=== PATIENT | male | born 1955 | race Caucasian/White ===

== ENCOUNTER 2017-04-10 15:16 | Inpatient (IN) | payer OTHER ==
[~2017-04-10] VITALS: Ht 175.3 cm; Wt 99.4 kg
[~2017-04-10 15:16] MED LIST: ASPI-630 PO; CLOP75TA PO; CYAN10005 PO; GABA-586 PO; ISOS60TA2 PO; LOSA50TA6 PO; METO-247 PO; MULT1TAB97 PO; OXYC-323 PO; PRAV20TA2 PO; SENN1TAB70 PO; ZINC30TA2 PO
[2017-04-10 16:29] LABS: BASO # 0.1 x10^3/uL (0.0-0.2); BASO % 1 % (0-3); EOS % 6 % (0-3); HEMATOCRIT 30.8 % (39.0-53.0); LYMPH # 1.3 x10^3/uL (1.0-4.8); LYMPH % 20 % (24-48); MEAN CORPUSCULAR HEMOGLOBIN 30 pg (25-35); MEAN CORPUSCULAR HGB CONC 33 g/dL (31-37); MEAN CORPUSCULAR VOLUME 92 fL (79-100); MONO % 11 % (0-9); NEUT % 62 % (31-73); PLATELET COUNT 187 x10^3/uL (140-400); RED BLOOD COUNT 3.35 x10^6/uL (4.30-5.70); RED CELL DISTRIBUTION WIDTH 14.1 % (11.5-14.5); WHITE BLOOD COUNT 6.6 x10^3/uL (4.0-11.0)
[2017-04-10 16:43] LABS: CALCIUM 8.9 mg/dL (8.5-10.1); CREATININE 8.5 mg/dL (0.7-1.3); GFR 6.4; POTASSIUM 5.1 mmol/L (3.5-5.1)
[2017-04-10] MEDS ORDERED: FUROSEMIDE 40 MG/4 ML VIAL. IVP ONE (16:45)
[2017-04-10 16:49] LABS: ALBUMIN 2.9 g/dL (3.4-5.0); ALBUMIN/GLOBULIN RATIO 0.8 (1.0-1.7); PHOSPHORUS 7.8 mg/dL (2.6-4.7); TOTAL BILIRUBIN 0.2 mg/dL (0.2-1.0); TOTAL PROTEIN 6.7 g/dL (6.4-8.2)
--- NOTE | 2017-04-10 16:49 | RAD ---
AP PORTABLE CHEST Clinical Indication: soa, dialysis pt. Comparison: None. Findings: Right IJ hemodialysis catheter, tip in distal SVC. Median sternotomy wires and changes of CABG. Cardiac size upper limits of normal. Lungs are clear. There is no pneumothorax. No pleural effusion is appreciated. There is no acute bone abnormality. IMPRESSION: No acute cardiopulmonary process.
--- NOTE | 2017-04-10 16:52 | RAD ---
ABDOMEN AP Clinical Indication: locate pd catheter Comparison: None. Findings: There is a left-sided catheter that courses into the pelvis. No dilated air-filled loops of bowel are seen. The bowel gas pattern is nonobstructive. No obvious organomegaly. There is no acute bony abnormality. IMPRESSION: 1. Left-sided catheter tip is located in the pelvis. 2. Nonobstructive bowel gas pattern.
--- NOTE | 2017-04-10 16:59 | PHYS DOC ---
Past Medical History Past Medical History: CAD, High Cholesterol, Hypertension, VA, Renal Failure Past Surgical History: Coronary Bypass Surgery, Tonsillectomy, Other Additional Past Surgical Histo: dialysis cath placement,right toe ampt, Additional Information: quit smoking 2004 Alcohol Use: None Drug Use: None Adult General Chief Complaint Chief Complaint: DIARRHEA HPI HPI Patient is a 62 year old male who presents ambulatory to the ED with the chief complaint of severe diarrhea. Patient recently started hemodialysis in about December. They have been using a hemodialysis catheter in his right chest wall. He dialyzes on Wednesday, , and Wednesday. On 03/22 he had a peritoneal dialysis catheter placed by Dr. Rooney.. Patient states the next day, 03/23, he went to dialysis and his chest catheter was not functioning so they began to use his PD catheter even though they were supposed to wait 2 weeks for it to "scar". He states they used it at least 2 or 3 times. He started having a lot of pain when they were using it. He also had drainage of clear liquid at the site where it enters his abdomen. He saw Dr. Rooney in the clinic and was instructed to stop using it until he was cleared to do so. At that point, they went back to using his chest wall catheter, they apparently unclotted it. Patient states they gave him 5 days of antibiotics starting when he started using his PD catheter, does not know what antibiotic it was. He did take those from approximately 03/23 through 03/27. Patient has never had diarrhea before like this. He estimates that he has had diarrhea 12-15 times each day since it started 5 days ago. He just had diarrhea for the eighth time today, when he arrived to his room in the ED. Patient also recently was restarted on furosemide. He has taken it in the past. PCP Dr. Mondragon [employer] Blind Worker was Dr. Stevens and now is Dr. Jackson Review of Systems Review of Systems Constitutional: Denies fever or chills [] HENT: Denies nasal congestion or sore throat [] Respiratory: He has had some shortness of air which she attributes to likely fluid overload Cardiovascular: Denies chest pain GI: As in history of present illness : He does make urine Musculoskeletal: Denies back pain or joint pain [] Integument: Denies rash or skin lesions [] Neurologic: Denies headache, focal weakness or sensory changes [] Endo: Patient states he is supposed to be taking insulin but has not taken it for a long time because he lost his meter All other systems were reviewed and found to be within normal limits, except as documented in this note. Current Medications Current Medications Current Medications Medications (Trade) Dose Ordered Sig/Isaiah Start Time Stop Time Status Last Admin Dose Admin Furosemide (Lasix) 40 mg 1X ONCE 04/10/17 16:45 04/10/17 16:46 DC 04/10/17 16:59 40 MG Allergies Allergies Allergies Coded Allergies Type Severity Reaction Last Updated Verified niacin Allergy Intermediate 03/22/17 Yes peas Allergy Intermediate 03/22/17 Yes soap Adverse Reaction Intermediate 03/22/17 Yes Physical Exam Physical Exam Constitutional: Well developed, well nourished, no acute distress, non-toxic appearance. Alert, warm and dry, mentating normally. HENT: Normocephalic, atraumatic, bilateral external ears normal, nose normal. [] Eyes: conjunctiva normal, no discharge. [] Neck: Normal range of motion, no stridor. [] Cardiovascular:Heart rate regular rhythm, no murmur [] Lungs & Thorax: Bilateral breath sounds clear to auscultation. there is a tunneled dialysis catheter present on the right upper chest wall that has a very small amount of erythema at the insertion site and a similar amount at the suture site that appears to be more reactive and does not appear to be cellulitis. Abdomen: Bowel sounds normal, soft, no tenderness, no masses, no pulsatile masses. A bandaged PD catheter is present in the left side of the abdomen, mildly tender at the site. Skin: Warm, dry, no erythema, no rash. [] Extremities: No tenderness, no cyanosis, no clubbing, ROM intact, no edema. [] Neurologic: Alert and oriented X 3, normal motor function, no focal deficits noted. [] Current Patient Data Vital Signs Vital Signs Date Time Temp Pulse Resp B/P (MAP) Pulse Ox O2 Delivery O2 Flow Rate FiO2 04/10/17 17:12 66 13 161/90 (113) 97 Room Air 04/10/17 16:06 97.9 97.9 Lab Values Laboratory Tests Test 04/10/17 16:03 White Blood Count 6.6 x10^3/uL (4.0-11.0) Red Blood Count 3.35 x10^6/uL (4.30-5.70) L Hemoglobin 10.0 g/dL (13.0-17.5) L Hematocrit 30.8 % (39.0-53.0) L Mean Corpuscular Volume 92 fL (79-100) Mean Corpuscular Hemoglobin 30 pg (25-35) Mean Corpuscular Hemoglobin Concent 33 g/dL (31-37) Red Cell Distribution Width 14.1 % (11.5-14.5) Platelet Count 187 x10^3/uL (140-400) Neutrophils (%) (Auto) 62 % (31-73) Lymphocytes (%) (Auto) 20 % (24-48) L Monocytes (%) (Auto) 11 % (0-9) H Eosinophils (%) (Auto) 6 % (0-3) H Basophils (%) (Auto) 1 % (0-3) Neutrophils # (Auto) 4.1 x10^3uL (1.8-7.7) Lymphocytes # (Auto) 1.3 x10^3/uL (1.0-4.8) Monocytes # (Auto) 0.7 x10^3/uL (0.0-1.1) Eosinophils # (Auto) 0.4 x10^3/uL (0.0-0.7) Basophils # (Auto) 0.1 x10^3/uL (0.0-0.2) Sodium Level 137 mmol/L (136-145) Potassium Level 5.1 mmol/L (3.5-5.1) Chloride Level 104 mmol/L (98-107) Carbon Dioxide Level 20 mmol/L (21-32) L Anion Gap 13 (6-14) Blood Urea Nitrogen 64 mg/dL (8-26) H Creatinine 8.5 mg/dL (0.7-1.3) H Estimated GFR (Cockcroft-Gault) 6.4 BUN/Creatinine Ratio 8 (6-20) Glucose Level 153 mg/dL (70-99) H Lactic Acid Level 0.9 mmol/L (0.4-2.0) Calcium Level 8.9 mg/dL (8.5-10.1) Phosphorus Level 7.8 mg/dL (2.6-4.7) H Total Bilirubin 0.2 mg/dL (0.2-1.0) Aspartate Amino Transferase (AST) 20 U/L (15-37) Alanine Aminotransferase (ALT) 25 U/L (16-63) Alkaline Phosphatase 84 U/L (46-116) Total Protein 6.7 g/dL (6.4-8.2) Albumin 2.9 g/dL (3.4-5.0) L Albumin/Globulin Ratio 0.8 (1.0-1.7) L Laboratory Tests 04/10/17 16:03 Laboratory Tests 04/10/17 16:03 EKG EKG 12-lead EKG read by me. Sinus rhythm. Heart rate 66. There are no acute ST or T wave changes indicative of ischemia or infarction. No STEMI. There are no T- wave abnormalities suggestive of hyperkalemia. No acute abnormalities. [id number][] Radiology/Procedures Radiology/Procedures One view portable chest x-ray and KUB read by the radiologist. No acute findings in the chest. Peritoneal dialysis catheter appears to be in the pelvis. [] Course & Med Decision Making Course & Med Decision Making Pertinent Labs and Imaging studies reviewed. (See chart for details) 62-year-old male dialysis patient presents to the ED with 5 days of large quantities of diarrhea. Also, he missed his dialysis the last 2 times because of this amount of diarrhea. He also had a concern about the placement of his PD catheter, see history of present illness for explanation. I believe the patient needs to be hospitalized for dialysis tomorrow. I am not seeing any indication for emergent dialysis tonight, but he definitely needs to have dialysis. I am also concerned about the possibility of C. difficile. The patient had antibiotics about 1 week before this diarrhea began. C. difficile testing was ordered. I discussed the patient with Dr. Jimenes. He will admit the patient. I wrote bridge orders. We agreed to start the patient on oral vancomycin. I also discussed the case with Dr. Childs, nephrology. I believe the patient should be dialyzed tomorrow but does not require urgent dialysis tonight. He will make arrangements for that. Patient is agreeable to the plan for admission as above. [] Dragon Disclaimer Dragon Disclaimer This electronic medical record was generated, in whole or in part, using a voice recognition dictation system. Departure Departure Impression: Primary Impression: Diarrhea Additional Impressions: Other disorders of phosphorus metabolism End-stage renal disease needing dialysis Disposition: 09 ADMITTED INPATIENT Admitting Physician: Funmilayo Jimenes Condition: STABLE Referrals: RANJIT MONDRAGON (PCP) Problem Qualifiers SANDY BOSWELL MD Apr 10, 2017 16:59
[2017-04-10] MEDS: VANCOMYCIN 125 MG/2.5 ML ORAL SOLUTION. PO SCH ×2 (18:13→22:30)
[2017-04-10 19:00] VITALS: BP 172/95
[2017-04-10] MEDS ORDERED: FURO-68 PO (20:03)
[2017-04-10] MEDS ORDERED: oxyCODONE/APAP 5/325 1 TAB TABLET PO PRN (21:45)
[2017-04-10] MEDS: FUROSEMIDE 40 MG TABLET. PO SCH (21:49)
[2017-04-10] MEDS ORDERED: METOPROLOL SUCC 24HR ER 100 MG TAB.ER.24H. PO SCH (22:00)
[2017-04-10] MEDS ORDERED: ATORVASTATIN CALCIUM 10 MG TABLET. PO SCH (22:00)
[2017-04-10] MEDS: GABAPENTIN 300 MG CAPSULE. PO SCH (22:30)
[2017-04-10] MEDS: ASPIRIN CHEWABLE 81 MG TABLET. PO SCH (22:30)
[2017-04-10 23:00] VITALS: BP 154/83
[2017-04-11 04:57] LABS: BASO # 0.1 x10^3/uL (0.0-0.2); BASO % 1 % (0-3); EOS % 7 % (0-3); HEMATOCRIT 29.6 % (39.0-53.0); HEMOGLOBIN 9.6 g/dL (13.0-17.5); LYMPH # 1.3 x10^3/uL (1.0-4.8); LYMPH % 20 % (24-48); MEAN CORPUSCULAR HEMOGLOBIN 30 pg (25-35); MEAN CORPUSCULAR HGB CONC 33 g/dL (31-37); MEAN CORPUSCULAR VOLUME 92 fL (79-100); MONO % 11 % (0-9); NEUT % 61 % (31-73); PLATELET COUNT 178 x10^3/uL (140-400); RED BLOOD COUNT 3.22 x10^6/uL (4.30-5.70); RED CELL DISTRIBUTION WIDTH 14.5 % (11.5-14.5); WHITE BLOOD COUNT 6.6 x10^3/uL (4.0-11.0)
[2017-04-11 05:26] LABS: CALCIUM 8.9 mg/dL (8.5-10.1); CREATININE 8.6 mg/dL (0.7-1.3); GFR 6.4; POTASSIUM 5.1 mmol/L (3.5-5.1)
[2017-04-11 07:00] VITALS: BP_SYST 101; BP_SYST 154; BP_DIAS 40; BP_DIAS 91
--- NOTE | 2017-04-11 08:51 | EKG ---
[facility] [address] [place] [address] Test Date: 2017-04-10 Test Time: 15:54:53 Pat Name: YOLANDE RASHID Department: Room: 586 1 Gender: M Bioinformatics Technician: : 1955 Requested By: SANDY BOSWELL Order Number: [id number] Reading MD: Miguel Lunsford MD Measurements Intervals [place] Rate: 66 P: -44 IA: 160 QRS: -3 QRSD: 110 T: 138 QT: 450 QTc: 474 Interpretive Statements SINUS RHYTHM NON-SPECIFIC ST/T CHANGES Electronically Signed On 04-13-2017 11:43:03 PHOTO MASK INSPECTOR by Miguel Lunsford MD
[2017-04-11] MEDS ORDERED: ZINC GLUCONATE 30 MG PO SCH (09:00)
[2017-04-11] MEDS: CYANOCOBALAMIN (VITAMIN B-12) 1,000 MCG TABLET. PO SCH (09:14)
[2017-04-11] MEDS: ATORVASTATIN CALCIUM 10 MG TABLET. PO SCH (09:14)
[2017-04-11] MEDS: ISOSORBIDE MONONITRATE ER 30 MG TAB.ER.24H PO SCH (09:16)
[2017-04-11] MEDS: FUROSEMIDE 40 MG TABLET. PO SCH ×2 (09:16→14:44)
[2017-04-11] MEDS: MULTIVITAMIN with MINERAL TABLET. PO SCH (09:16)
[2017-04-11] MEDS: CLOPIDOGREL BISULFATE 75 MG TABLET PO SCH (09:17)
[2017-04-11] MEDS: LOSARTAN POTASSIUM 50 MG TABLET. PO SCH (09:17)
[2017-04-11] MEDS: METOPROLOL SUCC 24HR ER 100 MG TAB.ER.24H. PO SCH (09:18)
[2017-04-11] MEDS: VANCOMYCIN 125 MG/2.5 ML ORAL SOLUTION. PO SCH ×4 (09:18→20:36)
[2017-04-11 10:46] VITALS: BP 148/89
[2017-04-11] MEDS ORDERED: MAGNESIUM SULFATE 2GM 50 ML IV PRN (14:30)
--- NOTE | 2017-04-11 14:34 | PDOC2 ---
CONSULT Date of Consult Date of Consult DATE: 04/11/17 TIME: 14:17 Reason for Consult Reason for Consult: ESRD and elyte ABN Referring Physician Referring Physician: FERNANDO and Dr Jimenes Identification/Chief Complaint Chief Complaint diarrhea, weakness Problems: Source Source: Chart review, Patient History of Present Illness Reason for Visit: as dictated Social History Lives: with Family Current Problem List Problem List Problems Medical Problems: (1) Diarrhea Status: Acute (2) End-stage renal disease needing dialysis Status: Acute (3) Other disorders of phosphorus metabolism Status: Acute Current Medications Current Medications Current Medications Furosemide (Lasix) 40 mg 1X ONCE IVP Last administered on 04/10/17 16:59; Start 04/10/17 at 16:45; Stop 04/10/17 at 16:46; Status DC Vancomycin HCl 125 mg [id number] PO Last administered on 04/11/17 09:18; Start 04/10/17 at 18:00 Aspirin (Children'S Aspirin) 81 mg HS PO Last administered on 04/10/17 22:30 ; Start 04/10/17 at 22:00 Clopidogrel Bisulfate (Plavix) 75 mg DAILY PO Last administered on 04/11/17 09:17; Start 04/11/17 at 09:00 Cyanocobalamin (Vitamin B-12) 1,000 mcg DAILY PO Last administered on 09:14; Start 04/11/17 at 09:00 Furosemide (Lasix) 40 mg [id number] PO Last administered on 04/11/17 09:16; Start 04/10/17 at 22:00 Losartan Potassium (Cozaar) 100 mg DAILY PO Last administered on 04/11/17 09: 17; Start 04/11/17 at 09:00 Metoprolol Succinate (Toprol Xl) 100 mg HS PO ; Start 04/10/17 at 22:00; Stop 04/10/17 at 23:03; Status DC Oxycodone/ Acetaminophen (Percocet 5/325) 1 tab PRN Q4HRS PRN PO PAIN; Start 04/10/17 at 21:45 Gabapentin (Neurontin) 300 mg HS PO Last administered on 04/10/17 22:30; Start 04/10/17 at 22:00 Isosorbide Mononitrate (Imdur) 120 mg DAILY PO Last administered on 04/11/17 09:16; Start 04/11/17 at 09:00 Multivitamins (Thera M Plus) 1 tab DAILY PO Last administered on 04/11/17 09: 16; Start 04/11/17 at 09:00 Atorvastatin Calcium (Lipitor) 5 mg HS PO ; Start 04/10/17 at 22:00; Stop at 23:04; Status DC Non-Formulary Medication 30 mg DAILY PO ; Start 04/11/17 at 09:00; Status UNV Metoprolol Succinate (Toprol Xl) 100 mg DAILY PO Last administered on 09:18; Start 04/11/17 at 09:00 Atorvastatin Calcium (Lipitor) 5 mg DAILY PO Last administered on 04/11/17 09 :14; Start 04/11/17 at 09:00 Active Scripts Active Reported Lasix (Furosemide) 40 Mg Tablet 40 Mg PO BID Percocet 5-325 Mg Tablet (Oxycodone/Acetaminophen) 1 Each Tablet 1 Tab PO Q4HRS PRN Zinc (Zinc Gluconate) 30 Mg Tablet 30 Mg PO DAILY Vitamin B-12 (Cyanocobalamin (Vitamin B-12)) 1,000 Mcg Tablet 1,000 Mcg PO DAILY Daily Multiple Vitamin (Multivitamin) 1 Each Tablet 1 Each PO DAILY Gabapentin 300 Mg Capsule 300 Mg PO HS Aspirin 81 Mg Tab.chew 81 Mg PO HS Pravastatin Sodium 20 Mg Tablet 20 Mg PO HS Clopidogrel (Clopidogrel Bisulfate) 75 Mg Tablet 75 Mg PO DAILY Isosorbide Mononitrate Er (Isosorbide Mononitrate) 60 Mg Tab.er.24h 120 Mg PO DAILY Losartan Potassium 50 Mg Tablet 100 Mg PO DAILY Metoprolol Succinate ( Xl ) (Metoprolol Succinate) 100 Mg Tab.er.24h 100 Mg PO HS Allergies Allergies: Coded Allergies: niacin (Verified Allergy, Intermediate, 03/22/17) peas (Verified Allergy, Intermediate, 03/22/17) soap (Verified Adverse Reaction, Intermediate, 03/22/17) ROS Review of System GEN: no Fevers no Chills EYES: no new Visual Complaints ENT: no EN Drainage no Hearing deficiets CVS: no Orthopnea no CP RESP: no SOB no SEPULVEDA GI: n Nausea no Vomiting + Diarrhea : no Dysuria no Urgency HEME: no easy bruising no Palp Ly Nodes NEURO no Focal Weakness no Sz PSYCH: no Suicidal Ideation no Depression SKIN: no Rashes ENDO: no Polyuria or Polydipsia no Hot/Cold Intolerance MU SK: no Arthraigia no Myalgia Physical Exam Physical Exam General Appearance: Awake Alert Oriented x 3 In no Distress Eyes: VIsion Unchanged Conjunctiva Normal EN: No EN Drainage Mucous Memb. moist Neck: no JVD no JVP Supple no Thyromegaly CVS: S1 S2 no Murmur No Gallop No Rub ++ Edema Resp: no Rales no Rhonchi no Acc. Muscle use GI: BAS +ve NO Bruit Non Tender Non Distended - obese : no CVA tenderness; no Suprapubic Tenderness SKIN: no Rashes Breast Exam deferred Mu.Sk: Adequate ROM no Muscle Atrophy - few missing toes Heme: Unable to palpate Obvious LAD no Splenomegaly NEURO: Good Strength and Tone Cranial Nerves II - XII grossly intact Psych: not Depressed no Active hallucination Vital Signs Vital Signs Date Time Temp Pulse Resp B/P (MAP) Pulse Ox O2 Delivery O2 Flow Rate FiO2 04/11/17 10:46 97.9 70 18 148/89 (108) 97 Room Air 97.9 Assessment & Plan ESRD: Current FLuid and E-lyte status does not necessitate emergent need for Dialysis. Will re-evaluate for Dialysis in am and continue on MWF schedule. Anemia: Epogen as ordered. Transfuse with next HD as needed. HTN: Current BP meds reviewed. See orders for changes. ^ed Phos - restart binders and watch trend ? Vol dpeltion - pt is asymptomatic and dose not want IVF Edema - chronic Diarrhea - W/up ongoing - check Mag and replace prn Met acidosis - presumably from Diarrhea - IVF with Bicarb if needed. anticipate correction with Hd bryce hypoAlbuminemia - ? still protineuric - claims he is eatin well Discussed Plan of Care and prognosis etc. at length with pt Labs Labs Laboratory Tests Test 04/10/17 16:03 04/11/17 04:30 White Blood Count 6.6 x10^3/uL (4.0-11.0) 6.6 x10^3/uL (4.0-11.0) Red Blood Count 3.35 x10^6/uL (4.30-5.70) 3.22 x10^6/uL (4.30-5.70) Hemoglobin 10.0 g/dL (13.0-17.5) 9.6 g/dL (13.0-17.5) Hematocrit 30.8 % (39.0-53.0) 29.6 % (39.0-53.0) Mean Corpuscular Volume 92 fL (79-100) 92 fL (79-100) Mean Corpuscular Hemoglobin 30 pg (25-35) 30 pg (25-35) Mean Corpuscular Hemoglobin Concent 33 g/dL (31-37) 33 g/dL (31-37) Red Cell Distribution Width 14.1 % (11.5-14.5) 14.5 % (11.5-14.5) Platelet Count 187 x10^3/uL (140-400) 178 x10^3/uL (140-400) Neutrophils (%) (Auto) 62 % (31-73) 61 % (31-73) Lymphocytes (%) (Auto) 20 % (24-48) 20 % (24-48) Monocytes (%) (Auto) 11 % (0-9) 11 % (0-9) Eosinophils (%) (Auto) 6 % (0-3) 7 % (0-3) Basophils (%) (Auto) 1 % (0-3) 1 % (0-3) Neutrophils # (Auto) 4.1 x10^3uL (1.8-7.7) 4.0 x10^3uL (1.8-7.7) Lymphocytes # (Auto) 1.3 x10^3/uL (1.0-4.8) 1.3 x10^3/uL (1.0-4.8) Monocytes # (Auto) 0.7 x10^3/uL (0.0-1.1) 0.7 x10^3/uL (0.0-1.1) Eosinophils # (Auto) 0.4 x10^3/uL (0.0-0.7) 0.4 x10^3/uL (0.0-0.7) Basophils # (Auto) 0.1 x10^3/uL (0.0-0.2) 0.1 x10^3/uL (0.0-0.2) Sodium Level 137 mmol/L (136-145) 136 mmol/L (136-145) Potassium Level 5.1 mmol/L (3.5-5.1) 5.1 mmol/L (3.5-5.1) Chloride Level 104 mmol/L (98-107) 107 mmol/L (98-107) Carbon Dioxide Level 20 mmol/L (21-32) 17 mmol/L (21-32) Anion Gap 13 (6-14) 12 (6-14) Blood Urea Nitrogen 64 mg/dL (8-26) 66 mg/dL (8-26) Creatinine 8.5 mg/dL (0.7-1.3) 8.6 mg/dL (0.7-1.3) Estimated GFR (Cockcroft-Gault) 6.4 6.4 BUN/Creatinine Ratio 8 (6-20) Glucose Level 153 mg/dL (70-99) 168 mg/dL (70-99) Lactic Acid Level 0.9 mmol/L (0.4-2.0) Calcium Level 8.9 mg/dL (8.5-10.1) 8.9 mg/dL (8.5-10.1) Phosphorus Level 7.8 mg/dL (2.6-4.7) Total Bilirubin 0.2 mg/dL (0.2-1.0) Aspartate Amino Transf (AST/SGOT) 20 U/L (15-37) Alanine Aminotransferase (ALT/SGPT) 25 U/L (16-63) Alkaline Phosphatase 84 U/L (46-116) Total Protein 6.7 g/dL (6.4-8.2) Albumin 2.9 g/dL (3.4-5.0) Albumin/Globulin Ratio 0.8 (1.0-1.7) Laboratory Tests Test 04/10/17 16:03 04/11/17 04:30 White Blood Count 6.6 x10^3/uL (4.0-11.0) 6.6 x10^3/uL (4.0-11.0) Red Blood Count 3.35 x10^6/uL (4.30-5.70) 3.22 x10^6/uL (4.30-5.70) Hemoglobin 10.0 g/dL (13.0-17.5) 9.6 g/dL (13.0-17.5) Hematocrit 30.8 % (39.0-53.0) 29.6 % (39.0-53.0) Mean Corpuscular Volume 92 fL (79-100) 92 fL (79-100) Mean Corpuscular Hemoglobin 30 pg (25-35) 30 pg (25-35) Mean Corpuscular Hemoglobin Concent 33 g/dL (31-37) 33 g/dL (31-37) Red Cell Distribution Width 14.1 % (11.5-14.5) 14.5 % (11.5-14.5) Platelet Count 187 x10^3/uL (140-400) 178 x10^3/uL (140-400) Neutrophils (%) (Auto) 62 % (31-73) 61 % (31-73) Lymphocytes (%) (Auto) 20 % (24-48) 20 % (24-48) Monocytes (%) (Auto) 11 % (0-9) 11 % (0-9) Eosinophils (%) (Auto) 6 % (0-3) 7 % (0-3) Basophils (%) (Auto) 1 % (0-3) 1 % (0-3) Neutrophils # (Auto) 4.1 x10^3uL (1.8-7.7) 4.0 x10^3uL (1.8-7.7) Lymphocytes # (Auto) 1.3 x10^3/uL (1.0-4.8) 1.3 x10^3/uL (1.0-4.8) Monocytes # (Auto) 0.7 x10^3/uL (0.0-1.1) 0.7 x10^3/uL (0.0-1.1) Eosinophils # (Auto) 0.4 x10^3/uL (0.0-0.7) 0.4 x10^3/uL (0.0-0.7) Basophils # (Auto) 0.1 x10^3/uL (0.0-0.2) 0.1 x10^3/uL (0.0-0.2) Sodium Level 137 mmol/L (136-145) 136 mmol/L (136-145) Potassium Level 5.1 mmol/L (3.5-5.1) 5.1 mmol/L (3.5-5.1) Chloride Level 104 mmol/L (98-107) 107 mmol/L (98-107) Carbon Dioxide Level 20 mmol/L (21-32) 17 mmol/L (21-32) Anion Gap 13 (6-14) 12 (6-14) Blood Urea Nitrogen 64 mg/dL (8-26) 66 mg/dL (8-26) Creatinine 8.5 mg/dL (0.7-1.3) 8.6 mg/dL (0.7-1.3) Estimated GFR (Cockcroft-Gault) 6.4 6.4 BUN/Creatinine Ratio 8 (6-20) Glucose Level 153 mg/dL (70-99) 168 mg/dL (70-99) Lactic Acid Level 0.9 mmol/L (0.4-2.0) Calcium Level 8.9 mg/dL (8.5-10.1) 8.9 mg/dL (8.5-10.1) Phosphorus Level 7.8 mg/dL (2.6-4.7) Total Bilirubin 0.2 mg/dL (0.2-1.0) Aspartate Amino Transf (AST/SGOT) 20 U/L (15-37) Alanine Aminotransferase (ALT/SGPT) 25 U/L (16-63) Alkaline Phosphatase 84 U/L (46-116) Total Protein 6.7 g/dL (6.4-8.2) Albumin 2.9 g/dL (3.4-5.0) Albumin/Globulin Ratio 0.8 (1.0-1.7) Images Images Findings: There is a left-sided catheter that courses into the pelvis. No dilated air-filled loops of bowel are seen. The bowel gas pattern is nonobstructive. No obvious organomegaly. There is no acute bony abnormality. IMPRESSION: 1. Left-sided catheter tip is located in the pelvis. 2. Nonobstructive bowel gas pattern. LISSET NELSON MD Apr 11, 2017 14:34
[2017-04-11 15:00] VITALS: BP 163/84
[2017-04-11] MEDS ORDERED: SODIUM BICARBONATE VIAL 150 MEQ in IV DEXTROSE 5% 1,000 ML IV SCH (15:00)
--- NOTE | 2017-04-11 18:23 | PDOC ---
Provider Note Provider Note Pt seen.H&P dictated. #[id number] CHRISSY GARCIA MD Apr 11, 2017 18:23
--- NOTE | 2017-04-11 18:46 | HP ---
ADMIT DATE: 04/10/2017 LOCATION: 6. ATTENDING PHYSICIAN: Dr. Garcia. PRIMARY CARE PHYSICIAN: Dr. Kelly. REASON FOR ADMISSION TO THE HOSPITAL: Diarrhea for at least a week, possible C. diff colitis. HISTORY OF PRESENT ILLNESS: The patient is a 62-year-old male patient who has end-stage renal disease. The patient had a peritoneal dialysis catheter placed a month ago by Dr. Rooney and that was not supposed to be used for a whole month. The patient has a temporary dialysis catheter. Unfortunately, that was malfunctioning, so the dialysis nurse used the peritoneal dialysis catheter within a week of placement. The patient was noticed to have some leakage of the fluid as well as abdominal cramping and the patient has seen Dr. Rooney who prescribed antibiotics for a week. In the meantime, the patient had a temporary dialysis catheter replaced because of malfunctioning and he was doing relatively well. A week ago he noticed some diarrhea at least 5-6 times, progressively worse and was very weak. He goes to dialysis Wednesday, and Wednesday. Wednesday he just did dialysis for 1 hour because of the diarrhea and he did not do on , came to the Emergency Room, was admitted for possible C. diff, was empirically started with p.o. vancomycin. PAST MEDICAL HISTORY: Coronary artery disease, heart bypass surgery, hypertension, hyperlipidemia, renal failure, heart attack. 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 ALLERGIES: NIACIN, PEAS AND SOAP. PERSONAL HISTORY: Ex-smoker, quit smoking in 2004, 1 pack for 30 years. Denies alcohol or drug abuse. MEDICATIONS AT HOME: Aspirin 81 mg daily, Plavix 75 mg daily, B12 at 1000 mcg daily, Lasix 40 mg twice a day, gabapentin 300 mg at bedtime, isosorbide 60 mg daily, losartan 100 mg daily, metoprolol 100 mg daily, vitamin daily, oxycodone 5/325 q.6 hours, pravastatin 20 mg daily, zinc daily. FAMILY HISTORY: Positive for diabetes, hypertension and kidney problems. REVIEW OF SYSTEMS: CARDIAC: No chest pain. LUNGS: No cough or sputum. GASTROINTESTINAL: Has nausea, no vomiting, diarrhea at least 5-6 times for a week. PHYSICAL EXAMINATION: GENERAL: The patient is not in any distress. VITAL SIGNS: Temperature 97, pulse 72, respirations 18, blood pressure 154/91, 97 on room air. HEENT: Head is atraumatic. Pupils equal. Oral cavity: No congestion. NECK: Supple. Thyroid not enlarged. JVD not elevated. CHEST: Symmetrical, history of heart surgery, bypass. CARDIOVASCULAR: S1, S2. LUNGS: Clear to auscultation. ABDOMEN: Soft. Has a peritoneal dialysis catheter, slightly tender, no rebound. EXTERNAL GENITALIA: No Morales. RECTAL: Deferred. EXTREMITIES: No calf tenderness, no edema. The patient has slight swelling in lower extremities from kidney failure, has vein stripping done from both legs for heart bypass, had a traumatic amputation of the first and second toes on the right foot. NEUROLOGIC: Moving all extremities. No focal deficit noted. SKIN: The patient has a dialysis catheter on the right side of the chest. LABORATORY DATA: White count was 6, hemoglobin 10, platelets 187. Electrolytes show sodium 137, potassium 5.1, chloride 104, bicarb 20, BUN 64, creatinine 8.5, glucose 153. Lactic acid 0.9. LFTs were normal. Chest x-ray: No acute process, scar of heart surgery, has a dialysis catheter to the chest. KUB shows peritoneal dialysis catheter in place. FINAL IMPRESSION: 1. Diarrhea for 1 week, possibility of Clostridium difficile is likely. 2. Peritoneal dialysis catheter was placed 3-4 weeks ago. There was infection, was treated with antibiotics that was 2 weeks ago, was treated for at least 1 week of antibiotics. 3. End-stage renal disease, on hemodialysis. 4. Coronary artery disease, bypass surgery. 5. Hypertension. 6. Hyperlipidemia. PLAN: Stool was sent for Clostridium difficile, empirically started on vancomycin. We will have GI as well as surgical consult to look at the PD catheter. Renal consult for dialysis, scheduled for dialysis tomorrow. CHRISSY GARCIA MD DR: SCOTT/shiela JOB#: [id number] / [id number] RANJIT Horton
[2017-04-11 19:00] VITALS: BP 129/72
[2017-04-11] MEDS: ASPIRIN CHEWABLE 81 MG TABLET. PO SCH (20:36)
[2017-04-11] MEDS: GABAPENTIN 300 MG CAPSULE. PO SCH (20:36)
[2017-04-11] MEDS ORDERED: DARBEPOETIN ALFA 60 MCG/0.3 ML DISP.SYRIN. SQ SCH (21:00)
[2017-04-11 23:00] VITALS: BP 149/86
--- NOTE | 2017-04-12 01:27 | CONS ---
DATE OF CONSULTATION: PRIMARY PHYSICIAN: Funmilayo Jimenes M.D. CONSULTING PHYSICIAN: Dr. Dorantes in the ER. HISTORY OF PRESENT ILLNESS: The patient is a 62-year-old gentleman who is noted to be on hemodialysis. He recently had a PD catheter placed also. Thereafter, he has developed a significant amount of diarrhea and has missed his last two dialysis treatments. He presented to the ER due to the same. He claims every time he would have to sit on the chair, he would need to go use the bathroom, came in the ER, was noted to have a nonobstructive bowel gas pattern with no dilated air filled loops of bowel seen. He was noted to be mildly hyperphosphatemic and I was asked by Dr. Dorantes regarding the same. It was not felt that he merited emergent dialysis to the ER yesterday despite missing two sessions. He does have some edema but he claims he continues to have significant amount of diarrhea and fluid status is not an issue currently denies shortness of breath, nausea, vomiting. His appetite is preserved and is eating well currently. 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 Peritoneal dialysis catheter placement. Benign prostatic hypertrophy requiring cystoscopy in the past has had surgery once. He does not know what was done presumed peripheral vascular disease with amputation of numerous toes, chronic arthritis, previous history of tobaccoism. FAMILY HISTORY: Positive for prostatitis, diabetes, hypertension. SOCIAL HISTORY: Currently, nonsmoker, nondrinker, quit smoking in 2004. Lives with family. For rest of the details, see electronic records. LISSET NELSON MD DR: RUPERTO/shiela JOB#: [id number] / [id number]
[2017-04-12 05:42] LABS: ALBUMIN 2.4 g/dL (3.4-5.0); CALCIUM 8.4 mg/dL (8.5-10.1); CREATININE 8.8 mg/dL (0.7-1.3); GFR 6.2; PHOSPHORUS 7.3 mg/dL (2.6-4.7); POTASSIUM 5.1 mmol/L (3.5-5.1)
[2017-04-12 07:00] VITALS: BP 150/90
[2017-04-12] MEDS: VANCOMYCIN 125 MG/2.5 ML ORAL SOLUTION. PO SCH ×4 (08:52→20:20)
[2017-04-12] MEDS: ISOSORBIDE MONONITRATE ER 30 MG TAB.ER.24H PO SCH (08:53)
[2017-04-12] MEDS: LOSARTAN POTASSIUM 50 MG TABLET. PO SCH (08:53)
[2017-04-12] MEDS: FUROSEMIDE 40 MG TABLET. PO SCH ×2 (08:55→15:05)
--- NOTE | 2017-04-12 09:05 | PDOC2 ---
CONSULT Date of Consult Date of Consult DATE: 04/12/17 TIME: 08:55 Reason for Consult Reason for Consult: PD cath Referring Physician Referring Physician: Dr Jimenes Identification/Chief Complaint Chief Complaint diarrhea Problems: Source Source: Chart review, Patient History of Present Illness Reason for Visit: Increasing weakness and fatigue with diarrhea > 1 week. Recent antibiotic use for drainage around catheter and abdominal pain after used for dialysis. Has temporary HD cath in place. PC cath was placed on 03/22/17 + cdiff on admission Past Medical History Cardiovascular: CAD, HTN, IA, Hyperlipidemia Renal/: Chronic renal failure Endocrine: Diabetes Past Surgical History Past Surgical History: CABG, Other (PC cath placement) Family History Family History: Other (noncontributory to current illness) Social History Quit ALCOHOL: none Drugs: None Lives: with Family Current Problem List Problem List Problems Medical Problems: (1) Diarrhea Status: Acute (2) End-stage renal disease needing dialysis Status: Acute (3) Other disorders of phosphorus metabolism Status: Acute Current Medications Current Medications Current Medications Furosemide (Lasix) 40 mg 1X ONCE IVP Last administered on 04/10/17 16:59; Start 04/10/17 at 16:45; Stop 04/10/17 at 16:46; Status DC Vancomycin HCl 125 mg [id number] PO Last administered on 04/11/17 20:36; Start 04/10/17 at 18:00 Aspirin (Children'S Aspirin) 81 mg HS PO Last administered on 04/11/17 20:36 ; Start 04/10/17 at 22:00 Clopidogrel Bisulfate (Plavix) 75 mg DAILY PO Last administered on 04/11/17 09:17; Start 04/11/17 at 09:00 Cyanocobalamin (Vitamin B-12) 1,000 mcg DAILY PO Last administered on 09:14; Start 04/11/17 at 09:00 Furosemide (Lasix) 40 mg [id number] PO Last administered on 04/11/17 14:44; Start 04/10/17 at 22:00 Losartan Potassium (Cozaar) 100 mg DAILY PO Last administered on 04/11/17 09: 17; Start 04/11/17 at 09:00 Metoprolol Succinate (Toprol Xl) 100 mg HS PO ; Start 04/10/17 at 22:00; Stop 04/10/17 at 23:03; Status DC Oxycodone/ Acetaminophen (Percocet 5/325) 1 tab PRN Q4HRS PRN PO PAIN; Start 04/10/17 at 21:45 Gabapentin (Neurontin) 300 mg HS PO Last administered on 04/11/17 20:36; Start 04/10/17 at 22:00 Isosorbide Mononitrate (Imdur) 120 mg DAILY PO Last administered on 04/11/17 09:16; Start 04/11/17 at 09:00 Multivitamins (Thera M Plus) 1 tab DAILY PO Last administered on 04/11/17 09: 16; Start 04/11/17 at 09:00 Atorvastatin Calcium (Lipitor) 5 mg HS PO ; Start 04/10/17 at 22:00; Stop at 23:04; Status DC Non-Formulary Medication 30 mg DAILY PO ; Start 04/11/17 at 09:00; Status UNV Metoprolol Succinate (Toprol Xl) 100 mg DAILY PO Last administered on 09:18; Start 04/11/17 at 09:00 Atorvastatin Calcium (Lipitor) 5 mg DAILY PO Last administered on 04/11/17 09 :14; Start 04/11/17 at 09:00 Magnesium Sulfate/ Dextrose 50 ml @ 25 mls/hr PRN DAILY PRN IV for Mag < 1.7 on am labs; Start 04/11/17 at 14:30 Darbepoetin Florencio (Aranesp) 60 mcg WEEKLYHS SQ Last administered on 04/11/17 20:39; Start 04/11/17 at 21:00 Sodium Bicarbonate 150 meq/Dextrose 1,150 ml @ 100 mls/hr [id number] IV ; Start 04/11/17 at 15:00; Stop 04/11/17 at 15:00; Status DC Active Scripts Active Reported Lasix (Furosemide) 40 Mg Tablet 40 Mg PO BID Percocet 5-325 Mg Tablet (Oxycodone/Acetaminophen) 1 Each Tablet 1 Tab PO Q4HRS PRN Zinc (Zinc Gluconate) 30 Mg Tablet 30 Mg PO DAILY Vitamin B-12 (Cyanocobalamin (Vitamin B-12)) 1,000 Mcg Tablet 1,000 Mcg PO DAILY Daily Multiple Vitamin (Multivitamin) 1 Each Tablet 1 Each PO DAILY Gabapentin 300 Mg Capsule 300 Mg PO HS Aspirin 81 Mg Tab.chew 81 Mg PO HS Pravastatin Sodium 20 Mg Tablet 20 Mg PO HS Clopidogrel (Clopidogrel Bisulfate) 75 Mg Tablet 75 Mg PO DAILY Isosorbide Mononitrate Er (Isosorbide Mononitrate) 60 Mg Tab.er.24h 120 Mg PO DAILY Losartan Potassium 50 Mg Tablet 100 Mg PO DAILY Metoprolol Succinate ( Xl ) (Metoprolol Succinate) 100 Mg Tab.er.24h 100 Mg PO HS Allergies Allergies: Coded Allergies: niacin (Verified Allergy, Intermediate, 03/22/17) peas (Verified Allergy, Intermediate, 03/22/17) soap (Verified Adverse Reaction, Intermediate, 03/22/17) ROS General: No: Chills, Other (fevers) PSYCHOLOGICAL ROS: No: Anxiety, Depression Eyes: No Blurry vision, No Double vision HEENT: No: Heacaches, Sore Throat Hematological and Lymphatic: No: Bleeding Problems, Blood Clots Respiratory: No: Cough, Shortness of breath Cardiovascular: No Chest Pain, No Palpitations Gastrointestinal: Yes Other (see hpi) Genitourinary: No Dysuria, No Hematuria Musculoskeletal: No Joint Pain, No Muscle Pain Neurological: No Confusion, No Numbness/Tingling Skin: No Pruritus, No Rash Physical Exam General: Alert, Oriented X3, Cooperative, No acute distress HEENT: PERRLA, Mucous membr. moist/pink Lungs: Clear to auscultation, Normal air movement Heart: Regular rate, Normal S1, Normal S2, No murmurs Abdomen: Soft, Other (ND, NTTP, pd cath in place) Extremities: No clubbing, No cyanosis Skin: No rashes, No breakdown Neuro: Normal speech, Sensation intact Psych/Mental Status: Mental status NL, Mood NL Vitals VITALS Vital Signs Date Time Temp Pulse Resp B/P (MAP) Pulse Ox O2 Delivery O2 Flow Rate FiO2 04/12/17 07:00 97.6 62 18 150/90 (110) 98 Room Air 97.6 Labs Labs Laboratory Tests Test 04/10/17 15:35 04/10/17 16:03 04/11/17 04:30 04/12/17 04:45 Clostridium difficile Toxin (PCR) Positive (Negative) White Blood Count 6.6 x10^3/uL (4.0-11.0) 6.6 x10^3/uL (4.0-11.0) Red Blood Count 3.35 x10^6/uL (4.30-5.70) 3.22 x10^6/uL (4.30-5.70) Hemoglobin 10.0 g/dL (13.0-17.5) 9.6 g/dL (13.0-17.5) 9.5 g/dL (13.0-17.5) Hematocrit 30.8 % (39.0-53.0) 29.6 % (39.0-53.0) Mean Corpuscular Volume 92 fL (79-100) 92 fL (79-100) Mean Corpuscular Hemoglobin 30 pg (25-35) 30 pg (25-35) Mean Corpuscular Hemoglobin Concent 33 g/dL (31-37) 33 g/dL (31-37) Red Cell Distribution Width 14.1 % (11.5-14.5) 14.5 % (11.5-14.5) Platelet Count 187 x10^3/uL (140-400) 178 x10^3/uL (140-400) Neutrophils (%) (Auto) 62 % (31-73) 61 % (31-73) Lymphocytes (%) (Auto) 20 % (24-48) 20 % (24-48) Monocytes (%) (Auto) 11 % (0-9) 11 % (0-9) Eosinophils (%) (Auto) 6 % (0-3) 7 % (0-3) Basophils (%) (Auto) 1 % (0-3) 1 % (0-3) Neutrophils # (Auto) 4.1 x10^3uL (1.8-7.7) 4.0 x10^3uL (1.8-7.7) Lymphocytes # (Auto) 1.3 x10^3/uL (1.0-4.8) 1.3 x10^3/uL (1.0-4.8) Monocytes # (Auto) 0.7 x10^3/uL (0.0-1.1) 0.7 x10^3/uL (0.0-1.1) Eosinophils # (Auto) 0.4 x10^3/uL (0.0-0.7) 0.4 x10^3/uL (0.0-0.7) Basophils # (Auto) 0.1 x10^3/uL (0.0-0.2) 0.1 x10^3/uL (0.0-0.2) Sodium Level 137 mmol/L (136-145) 136 mmol/L (136-145) 135 mmol/L (136-145) Potassium Level 5.1 mmol/L (3.5-5.1) 5.1 mmol/L (3.5-5.1) 5.1 mmol/L (3.5-5.1) Chloride Level 104 mmol/L (98-107) 107 mmol/L (98-107) 105 mmol/L (98-107) Carbon Dioxide Level 20 mmol/L (21-32) 17 mmol/L (21-32) 17 mmol/L (21-32) Anion Gap 13 (6-14) 12 (6-14) 13 (6-14) Blood Urea Nitrogen 64 mg/dL (8-26) 66 mg/dL (8-26) 69 mg/dL (8-26) Creatinine 8.5 mg/dL (0.7-1.3) 8.6 mg/dL (0.7-1.3) 8.8 mg/dL (0.7-1.3) Estimated GFR (Cockcroft-Gault) 6.4 6.4 6.2 BUN/Creatinine Ratio 8 (6-20) Glucose Level 153 mg/dL (70-99) 168 mg/dL (70-99) 140 mg/dL (70-99) Lactic Acid Level 0.9 mmol/L (0.4-2.0) Calcium Level 8.9 mg/dL (8.5-10.1) 8.9 mg/dL (8.5-10.1) 8.4 mg/dL (8.5-10.1) Phosphorus Level 7.8 mg/dL (2.6-4.7) 7.3 mg/dL (2.6-4.7) Total Bilirubin 0.2 mg/dL (0.2-1.0) Aspartate Amino Transf (AST/SGOT) 20 U/L (15-37) Alanine Aminotransferase (ALT/SGPT) 25 U/L (16-63) Alkaline Phosphatase 84 U/L (46-116) Total Protein 6.7 g/dL (6.4-8.2) Albumin 2.9 g/dL (3.4-5.0) 2.4 g/dL (3.4-5.0) Albumin/Globulin Ratio 0.8 (1.0-1.7) Magnesium Level 2.4 mg/dL (1.8-2.4) Laboratory Tests Test 04/12/17 04:45 Hemoglobin 9.5 g/dL (13.0-17.5) Sodium Level 135 mmol/L (136-145) Potassium Level 5.1 mmol/L (3.5-5.1) Chloride Level 105 mmol/L (98-107) Carbon Dioxide Level 17 mmol/L (21-32) Anion Gap 13 (6-14) Blood Urea Nitrogen 69 mg/dL (8-26) Creatinine 8.8 mg/dL (0.7-1.3) Estimated GFR (Cockcroft-Gault) 6.2 Glucose Level 140 mg/dL (70-99) Calcium Level 8.4 mg/dL (8.5-10.1) Phosphorus Level 7.3 mg/dL (2.6-4.7) Magnesium Level 2.4 mg/dL (1.8-2.4) Albumin 2.4 g/dL (3.4-5.0) Assessment/Plan Assessment/Plan c diff renal failure, PD cath, temp HD cath in place treat c diff, HD until ready to use PD cath JAIME NYE APRN Apr 12, 2017 09:05
--- NOTE | 2017-04-12 09:06 | PDOC2 ---
GI CONSULT Reason For Consult: Loose stools x 5 days HPI: HPI: 62 y/o male who took antibiotics within the past couple weeks for PD cath. Started having diarrhea (10-15 watery or loose stools daily) about 6 days ago. Significant enough to interrupt dialysis (HD). C Diff was positive and he is now on PO vancomycin but has not noted much improvement so far (says has had two stools this morning, also had issues making it to the restroom overnight). Had abd cramping at first; this has improved. Stools occasionally look "black, " but denies hematochezia. No n/v. Has "acid indigestion" that "drives him nuts" and has been worse late after meals. Takes Tums before meals. On ASA and Plavix. No dysphagia or change in appetite. Weight gain off and on related to fluid retention. Had EGD, SBCE, and colonoscopy last year @ [facility] for anemia, reports all were unrevealing. Summary list includes B12. PMH: PMH: CAD, NH, CHF, HTN, HLD, PVD, cardiac stent placement, CABG, cystoscopy, tonsillectomy, toe amputations, rezum treatment FH: Family History: No pertinent hx Social History: Smoke: Quit ALCOHOL: none Drugs: None ROS: GEN: Denies fevers, chills, sweats HEENT: Denies blurred vision, sore throat CV: Denies chest pain RESP: Denies shortness of air, cough GI: Per HPI : Denies hematuria, dysuria ENDO: Denies weight changes NEURO: Denies confusion, dizziness MSK: Denies weakness, joint pain/swelling SKIN: Denies jaundice, pruritus Vitals: Vitals: Vital Signs Date Time Temp Pulse Resp B/P (MAP) Pulse Ox O2 Delivery O2 Flow Rate FiO2 04/12/17 07:00 97.6 62 18 150/90 (110) 98 Room Air 97.6 Labs: Labs: Laboratory Tests Test 04/12/17 04:45 Hemoglobin 9.5 g/dL (13.0-17.5) Sodium Level 135 mmol/L (136-145) Potassium Level 5.1 mmol/L (3.5-5.1) Chloride Level 105 mmol/L (98-107) Carbon Dioxide Level 17 mmol/L (21-32) Anion Gap 13 (6-14) Blood Urea Nitrogen 69 mg/dL (8-26) Creatinine 8.8 mg/dL (0.7-1.3) Estimated GFR (Cockcroft-Gault) 6.2 Glucose Level 140 mg/dL (70-99) Calcium Level 8.4 mg/dL (8.5-10.1) Phosphorus Level 7.3 mg/dL (2.6-4.7) Magnesium Level 2.4 mg/dL (1.8-2.4) Albumin 2.4 g/dL (3.4-5.0) Allergies: Coded Allergies: niacin (Verified Allergy, Intermediate, 03/22/17) peas (Verified Allergy, Intermediate, 03/22/17) soap (Verified Adverse Reaction, Intermediate, 03/22/17) Medications: Current Medications Medications (Trade) Dose Ordered Sig/Isaiah Route PRN Reason Start Time Stop Time Status Last Admin Dose Admin Clopidogrel Bisulfate (Plavix) 75 mg DAILY PO 04/11/17 09:00 04/11/17 09:17 Cyanocobalamin (Vitamin B-12) 1,000 mcg DAILY PO 04/11/17 09:00 04/11/17 09:14 Losartan Potassium (Cozaar) 100 mg DAILY PO 04/11/17 09:00 04/11/17 09:17 Isosorbide Mononitrate (Imdur) 120 mg DAILY PO 04/11/17 09:00 04/11/17 09:16 Multivitamins (Thera M Plus) 1 tab DAILY PO 04/11/17 09:00 04/11/17 09:16 Metoprolol Succinate (Toprol Xl) 100 mg DAILY PO 04/11/17 09:00 04/11/17 09:18 Atorvastatin Calcium (Lipitor) 5 mg DAILY PO 04/11/17 09:00 04/11/17 09:14 Darbepoetin Florencio (Aranesp) 60 mcg WEEKLYHS SQ 04/11/17 21:00 04/11/17 20:39 Imaging: Imaging: KUB 04/10/17 IMPRESSION: 1. Left-sided catheter tip is located in the pelvis. 2. Nonobstructive bowel gas pattern. CXR IMPRESSION: No acute cardiopulmonary process. PE: GEN: NAD, sitting on edge of bed eating [place] muffin HEENT: Atraumatic, PERRL LUNGS: CTAB HEART: RRR ABD: NABS, S/ND/NT, PD cath LLQ EXTREMITY: BLE edema, toe amputations SKIN: No rashes, no jaundice NEURO/PSYCH: A & O 3 A/P: A/P: C Diff diarrhea -precipitated by atbx use, on PO vanc GERD -unresolved w/ Tums Anemia -reports unrevealing EGD, SBCE, and colonoscopy last year @ [facility] ESRD on HD (has PD cath) BPH -per primary -- Continue vancomycin, try PPI. ROCKY JACKSON Apr 12, 2017 09:06
[2017-04-12] MEDS ORDERED: IV NORMAL SALINE 1000ML BAG 1,000 ML IV PRN ×2 (09:42)
[2017-04-12] MEDS ORDERED: DIALYSIS PATIENT. MC PRN (09:45)
[2017-04-12] MEDS ORDERED: diphenhydrAMINE 50 MG/ML VIAL IV PRN ×2 (09:45)
--- NOTE | 2017-04-12 10:20 | PDOC ---
PROGRESS NOTES Subjective Subjective still has loose stools Objective Objective Vital Signs Date Time Temp Pulse Resp B/P (MAP) Pulse Ox O2 Delivery O2 Flow Rate FiO2 04/12/17 08:53 62 150/90 04/12/17 07:00 97.6 18 98 Room Air 97.6 Intake and Output 04/12/17 07:00 Intake Total 1800 ml Balance 1800 ml Intake Oral 1800 ml # Voids 2 # Bowel Movements 1 Physical Exam Abdomen: Soft, Other (ND, NTTP, pd cath in place) Heart: Regular rate, Normal S1, Normal S2, No murmurs Extremities: No clubbing, No cyanosis General: Alert, Oriented X3, Cooperative, No acute distress HEENT: PERRLA, Mucous membr. moist/pink Lungs: Clear to auscultation, Normal air movement Neuro: Normal speech, Sensation intact Psych/Mental Status: Mental status NL, Mood NL Skin: No rashes, No breakdown Diagnosis Problem List Problems Medical Problems: (1) Diarrhea Status: Acute (2) End-stage renal disease needing dialysis Status: Acute (3) Other disorders of phosphorus metabolism Status: Acute Assessment Assessment Problems Medical Problems: (1) Diarrhea Status: Acute (2) End-stage renal disease needing dialysis Status: Acute (3) Other disorders of phosphorus metabolism Status: Acute FINAL IMPRESSION: 1. Clostridium difficile diarrhea, c diff is positive 2. Peritoneal dialysis catheter was placed 3-4 weeks ago. There was infection, was treated with antibiotics that was 2 weeks ago, was treated for at least 1 week of antibiotics. 3. End-stage renal disease, on hemodialysis. 4. Coronary artery disease, bypass surgery. 5. Hypertension. 6. Hyperlipidemia. PLAN: Stool was sent for Clostridium difficile was positive, started on oral vancomycin. We will have GI as well as surgical consult to look at the PD catheter. Renal consult for dialysis, scheduled for dialysis today. home in 2 days Problems: Plan Plan of Care Problems Medical Problems: (1) Diarrhea Status: Acute (2) End-stage renal disease needing dialysis Status: Acute (3) Other disorders of phosphorus metabolism Status: Acute Comment Review of Relevant I have reviewed the following items francisco (where applicable) has been applied. Labs Laboratory Tests Test 04/12/17 04:45 Hemoglobin 9.5 g/dL (13.0-17.5) Sodium Level 135 mmol/L (136-145) Potassium Level 5.1 mmol/L (3.5-5.1) Chloride Level 105 mmol/L (98-107) Carbon Dioxide Level 17 mmol/L (21-32) Anion Gap 13 (6-14) Blood Urea Nitrogen 69 mg/dL (8-26) Creatinine 8.8 mg/dL (0.7-1.3) Estimated GFR (Cockcroft-Gault) 6.2 Glucose Level 140 mg/dL (70-99) Calcium Level 8.4 mg/dL (8.5-10.1) Phosphorus Level 7.3 mg/dL (2.6-4.7) Magnesium Level 2.4 mg/dL (1.8-2.4) Albumin 2.4 g/dL (3.4-5.0) Medications Current Medications Darbepoetin Florencio (Aranesp) 60 mcg WEEKLYHS SQ Last administered on 04/11/17t 20:39; Start 04/11/17 at 21:00 Diphenhydramine HCl (Benadryl) 25 mg 1X PRN PRN IV ITCHING; Start 04/12/17 at 09:45; Stop 04/13/17 at 09:44 Diphenhydramine HCl (Benadryl) 25 mg 1X PRN PRN IV ITCHING; Start 04/12/17 at 09:45; Stop 04/13/17 at 09:44 Info (PHARMACY MONITORING -- do not chart) 1 each PRN DAILY PRN MC SEE COMMENTS ; Start 04/12/17 at 09:45 Magnesium Sulfate/ Dextrose 50 ml @ 25 mls/hr PRN DAILY PRN IV for Mag < 1.7 on am labs; Start 04/11/17 at 14:30 Pantoprazole Sodium (Protonix) 40 mg DAILYAC PO ; Start 04/12/17 at 10:00 Sodium Bicarbonate 150 meq/Dextrose 1,150 ml @ 100 mls/hr [id number] IV ; Start 04/11/17 at 15:00; Stop 04/11/17 at 15:00; Status DC Sodium Chloride 1,000 ml @ 400 mls/hr Q2H30M PRN IV PATENCY; Start 04/12/17 at 09:42; Stop 04/12/17 at 21:41 Sodium Chloride 1,000 ml @ 1,000 mls/hr Q1H PRN IV hypotension; Start at 09:42; Stop 04/12/17 at 15:41 Vitals/I & O Vital Sign - Last 24 Hours 04/11/17 04/11/17 04/11/17 04/11/17 10:46 15:00 19:00 23:00 Temp 97.9 97.9 98.1 98.1 97.9 97.9 98.1 98.1 Pulse 70 67 64 72 Resp 18 18 18 16 B/P (MAP) 148/89 (108) 163/84 (110) 129/72 (91) 149/86 (107) Pulse Ox 97 98 96 94 O2 Delivery Room Air Room Air 04/12/17 04/12/17 04/12/17 07:00 08:53 08:53 Temp 97.6 97.6 Pulse 62 62 62 Resp 18 B/P (MAP) 150/90 (110) 150/90 150/90 Pulse Ox 98 O2 Delivery Room Air Intake and Output 04/11/17 04/11/17 04/12/17 15:00 23:00 07:00 Intake Total 600 ml 1100 ml 100 ml Balance 600 ml 1100 ml 100 ml CHRISSY GARCIA MD Apr 12, 2017 10:20
--- NOTE | 2017-04-12 10:57 | PDOC ---
Dialysis Progress Note Dialysis Note Dialysis Note Seen on Hemodialysis, tolerating treatment Well Vitals on Hemodialysis: 161/93 86 General Appearance: Awake: Alert Oriented x 3 Neck: No JVD or JVP Chest: CTA Link Heart: S1 S2 Abdomen - Soft NTND Extremities - Ch Edema ESRD: Dialysis as below F 180 NR 3.5 Hrs 2 K 2.5 Ca 140 Na 35 HC03 Qb 350 + Qd 500+ Heparin 0 Units Uf 0 Kgs or to dry weight as tolerated (pt still having diarrhea) may give 25-50 gms of 25% Albumin if needed to maintain Hemodynamic stability Treatment plan reviewed and discussed with director of infection control Vitals Vital Signs Vital Signs Date Time Temp Pulse Resp B/P (MAP) Pulse Ox O2 Delivery O2 Flow Rate FiO2 04/12/17 08:53 62 150/90 04/12/17 07:00 97.6 18 98 Room Air 97.6 Labs Last Labs Laboratory Tests Test 04/10/17 15:35 04/10/17 16:03 04/11/17 04:30 04/12/17 04:45 Clostridium difficile Toxin (PCR) Positive (Negative) White Blood Count 6.6 x10^3/uL (4.0-11.0) 6.6 x10^3/uL (4.0-11.0) Red Blood Count 3.35 x10^6/uL (4.30-5.70) 3.22 x10^6/uL (4.30-5.70) Hemoglobin 10.0 g/dL (13.0-17.5) 9.6 g/dL (13.0-17.5) 9.5 g/dL (13.0-17.5) Hematocrit 30.8 % (39.0-53.0) 29.6 % (39.0-53.0) Mean Corpuscular Volume 92 fL (79-100) 92 fL (79-100) Mean Corpuscular Hemoglobin 30 pg (25-35) 30 pg (25-35) Mean Corpuscular Hemoglobin Concent 33 g/dL (31-37) 33 g/dL (31-37) Red Cell Distribution Width 14.1 % (11.5-14.5) 14.5 % (11.5-14.5) Platelet Count 187 x10^3/uL (140-400) 178 x10^3/uL (140-400) Neutrophils (%) (Auto) 62 % (31-73) 61 % (31-73) Lymphocytes (%) (Auto) 20 % (24-48) 20 % (24-48) Monocytes (%) (Auto) 11 % (0-9) 11 % (0-9) Eosinophils (%) (Auto) 6 % (0-3) 7 % (0-3) Basophils (%) (Auto) 1 % (0-3) 1 % (0-3) Neutrophils # (Auto) 4.1 x10^3uL (1.8-7.7) 4.0 x10^3uL (1.8-7.7) Lymphocytes # (Auto) 1.3 x10^3/uL (1.0-4.8) 1.3 x10^3/uL (1.0-4.8) Monocytes # (Auto) 0.7 x10^3/uL (0.0-1.1) 0.7 x10^3/uL (0.0-1.1) Eosinophils # (Auto) 0.4 x10^3/uL (0.0-0.7) 0.4 x10^3/uL (0.0-0.7) Basophils # (Auto) 0.1 x10^3/uL (0.0-0.2) 0.1 x10^3/uL (0.0-0.2) Sodium Level 137 mmol/L (136-145) 136 mmol/L (136-145) 135 mmol/L (136-145) Potassium Level 5.1 mmol/L (3.5-5.1) 5.1 mmol/L (3.5-5.1) 5.1 mmol/L (3.5-5.1) Chloride Level 104 mmol/L (98-107) 107 mmol/L (98-107) 105 mmol/L (98-107) Carbon Dioxide Level 20 mmol/L (21-32) 17 mmol/L (21-32) 17 mmol/L (21-32) Anion Gap 13 (6-14) 12 (6-14) 13 (6-14) Blood Urea Nitrogen 64 mg/dL (8-26) 66 mg/dL (8-26) 69 mg/dL (8-26) Creatinine 8.5 mg/dL (0.7-1.3) 8.6 mg/dL (0.7-1.3) 8.8 mg/dL (0.7-1.3) Estimated GFR (Cockcroft-Gault) 6.4 6.4 6.2 BUN/Creatinine Ratio 8 (6-20) Glucose Level 153 mg/dL (70-99) 168 mg/dL (70-99) 140 mg/dL (70-99) Lactic Acid Level 0.9 mmol/L (0.4-2.0) Calcium Level 8.9 mg/dL (8.5-10.1) 8.9 mg/dL (8.5-10.1) 8.4 mg/dL (8.5-10.1) Phosphorus Level 7.8 mg/dL (2.6-4.7) 7.3 mg/dL (2.6-4.7) Total Bilirubin 0.2 mg/dL (0.2-1.0) Aspartate Amino Transf (AST/SGOT) 20 U/L (15-37) Alanine Aminotransferase (ALT/SGPT) 25 U/L (16-63) Alkaline Phosphatase 84 U/L (46-116) Total Protein 6.7 g/dL (6.4-8.2) Albumin 2.9 g/dL (3.4-5.0) 2.4 g/dL (3.4-5.0) Albumin/Globulin Ratio 0.8 (1.0-1.7) Magnesium Level 2.4 mg/dL (1.8-2.4) Laboratory Tests Test 04/12/17 04:45 Hemoglobin 9.5 g/dL (13.0-17.5) Sodium Level 135 mmol/L (136-145) Potassium Level 5.1 mmol/L (3.5-5.1) Chloride Level 105 mmol/L (98-107) Carbon Dioxide Level 17 mmol/L (21-32) Anion Gap 13 (6-14) Blood Urea Nitrogen 69 mg/dL (8-26) Creatinine 8.8 mg/dL (0.7-1.3) Estimated GFR (Cockcroft-Gault) 6.2 Glucose Level 140 mg/dL (70-99) Calcium Level 8.4 mg/dL (8.5-10.1) Phosphorus Level 7.3 mg/dL (2.6-4.7) Magnesium Level 2.4 mg/dL (1.8-2.4) Albumin 2.4 g/dL (3.4-5.0) Assessment Assessment Problems Medical Problems: (1) Diarrhea Status: Acute (2) End-stage renal disease needing dialysis Status: Acute (3) Other disorders of phosphorus metabolism Status: Acute Problems: Plan Plan of Care Problems Medical Problems: (1) Diarrhea Status: Acute (2) End-stage renal disease needing dialysis Status: Acute (3) Other disorders of phosphorus metabolism Status: Acute LISSET NELSON MD Apr 12, 2017 10:57
[2017-04-12 15:00] VITALS: BP 181/98
[2017-04-12] MEDS: ATORVASTATIN CALCIUM 10 MG TABLET. PO SCH (15:02)
[2017-04-12] MEDS: CLOPIDOGREL BISULFATE 75 MG TABLET PO SCH (15:03)
[2017-04-12] MEDS: MULTIVITAMIN with MINERAL TABLET. PO SCH (15:04)
[2017-04-12] MEDS: METOPROLOL SUCC 24HR ER 100 MG TAB.ER.24H. PO SCH (15:04)
[2017-04-12] MEDS: PANTOPRAZOLE 40 MG TABLET.DR. PO SCH (15:05)
[2017-04-12] MEDS: CYANOCOBALAMIN (VITAMIN B-12) 1,000 MCG TABLET. PO SCH (15:05)
[2017-04-12 19:35] VITALS: BP 163/87
[2017-04-12] MEDS: ASPIRIN CHEWABLE 81 MG TABLET. PO SCH (20:20)
[2017-04-12] MEDS: GABAPENTIN 300 MG CAPSULE. PO SCH (20:21)
[2017-04-13 05:52] LABS: ALBUMIN 2.4 g/dL (3.4-5.0); CREATININE 5.7 mg/dL (0.7-1.3); GFR 10.2; PHOSPHORUS 5.4 mg/dL (2.6-4.7); POTASSIUM 4.3 mmol/L (3.5-5.1)
[2017-04-13 07:00] VITALS: BP 177/108
[2017-04-13] MEDS: VANCOMYCIN 125 MG/2.5 ML ORAL SOLUTION. PO SCH ×4 (08:38→21:03)
[2017-04-13] MEDS: MULTIVITAMIN with MINERAL TABLET. PO SCH (08:39)
[2017-04-13] MEDS: CLOPIDOGREL BISULFATE 75 MG TABLET PO SCH (08:40)
[2017-04-13] MEDS: PANTOPRAZOLE 40 MG TABLET.DR. PO SCH (08:40)
[2017-04-13] MEDS: FUROSEMIDE 40 MG TABLET. PO SCH ×2 (08:40→13:18)
[2017-04-13] MEDS: ATORVASTATIN CALCIUM 10 MG TABLET. PO SCH (08:40)
[2017-04-13] MEDS: CYANOCOBALAMIN (VITAMIN B-12) 1,000 MCG TABLET. PO SCH (08:40)
[2017-04-13] MEDS: LOSARTAN POTASSIUM 50 MG TABLET. PO SCH (08:41)
[2017-04-13] MEDS: METOPROLOL SUCC 24HR ER 100 MG TAB.ER.24H. PO SCH (08:41)
[2017-04-13] MEDS: ISOSORBIDE MONONITRATE ER 30 MG TAB.ER.24H PO SCH (08:42)
--- NOTE | 2017-04-13 09:56 | PDOC ---
PROGRESS NOTES Subjective Subjective runny stools Objective Objective Vital Signs Date Time Temp Pulse Resp B/P (MAP) Pulse Ox O2 Delivery O2 Flow Rate FiO2 04/13/17 08:42 70 177/108 04/13/17 07:00 97.8 20 98 97.8 04/12/17 19:35 Room Air Intake and Output 04/13/17 07:00 Intake Total 1400 ml Output Total 0 ml Balance 1400 ml Intake Oral 1400 ml Output Urine Total 0 ml # Voids 1 # Bowel Movements 7 Physical Exam Abdomen: Soft, Other (ND, NTTP, pd cath in place) Heart: Regular rate, Normal S1, Normal S2, No murmurs Extremities: No clubbing, No cyanosis General: Alert, Oriented X3, Cooperative, No acute distress HEENT: PERRLA, Mucous membr. moist/pink Lungs: Clear to auscultation, Normal air movement Neuro: Normal speech, Sensation intact Psych/Mental Status: Mental status NL, Mood NL Skin: No rashes, No breakdown Diagnosis Problem List Problems Medical Problems: (1) Diarrhea Status: Acute (2) End-stage renal disease needing dialysis Status: Acute (3) Other disorders of phosphorus metabolism Status: Acute Assessment Assessment Problems Medical Problems: (1) Diarrhea Status: Acute (2) End-stage renal disease needing dialysis Status: Acute (3) Other disorders of phosphorus metabolism Status: Acute FINAL IMPRESSION: 1. Clostridium difficile diarrhea, c diff is positive 2. Peritoneal dialysis catheter was placed 3-4 weeks ago. There was infection, was treated with antibiotics that was 2 weeks ago, was treated for at least 1 week of antibiotics. 3. End-stage renal disease, on hemodialysis. 4. Coronary artery disease, bypass surgery. 5. Hypertension. 6. Hyperlipidemia. PLAN: Add Questran for diarrhoea. Stool was sent for Clostridium difficile was positive, Started on oral vancomycin. spoke with renal Dialysis in am home tomorrow after that Problems: Plan Plan of Care Problems Medical Problems: (1) Diarrhea Status: Acute (2) End-stage renal disease needing dialysis Status: Acute (3) Other disorders of phosphorus metabolism Status: Acute Comment Review of Relevant I have reviewed the following items francisco (where applicable) has been applied. Labs Laboratory Tests Test 04/13/17 04:40 Sodium Level 137 mmol/L (136-145) Potassium Level 4.3 mmol/L (3.5-5.1) Chloride Level 102 mmol/L (98-107) Carbon Dioxide Level 27 mmol/L (21-32) Anion Gap 8 (6-14) Blood Urea Nitrogen 39 mg/dL (8-26) Creatinine 5.7 mg/dL (0.7-1.3) Estimated GFR (Cockcroft-Gault) 10.2 Glucose Level 149 mg/dL (70-99) Calcium Level 8.0 mg/dL (8.5-10.1) Phosphorus Level 5.4 mg/dL (2.6-4.7) Magnesium Level 2.0 mg/dL (1.8-2.4) Albumin 2.4 g/dL (3.4-5.0) Medications Current Medications Pantoprazole Sodium (Protonix) 40 mg DAILYAC PO Last administered on t 08:40; Start 04/12/17 at 10:00 Vitals/I & O Vital Sign - Last 24 Hours 04/12/17 04/12/17 04/12/17 04/13/17 15:00 15:04 19:35 07:00 Temp 97.8 97.9 97.8 97.8 97.9 97.8 Pulse 78 75 91 70 Resp 18 20 B/P (MAP) 181/98 (125) 186/104 163/87 (112) 177/108 (131) Pulse Ox 97 95 98 O2 Delivery Room Air Room Air 04/13/17 04/13/17 04/13/17 08:41 08:41 08:42 Pulse 70 70 70 B/P (MAP) 177/108 177/108 177/108 Intake and Output 04/12/17 04/12/17 04/13/17 15:00 23:00 07:00 Intake Total 300 ml 1100 ml Output Total 0 ml Balance 300 ml 1100 ml 0 ml CHRISSY GARCIA MD Apr 13, 2017 09:56
[2017-04-13] MEDS: CHOLESTYRAMINE/ASPARTAME 4 GM PACKET PO SCH ×2 (11:17→21:03)
--- NOTE | 2017-04-13 11:33 | PDOC ---
SUBJECTIVE ROS ESRD doing and feeling a little better today CVS: no Orthopnea, no CP RESP: no SOB, no SEPULVEDA GI: no Nausea, no Vomiting : no Dysuria, no Urgency OBJECTIVE Vital Signs Vital Signs Date Time Temp Pulse Resp B/P (MAP) Pulse Ox O2 Delivery O2 Flow Rate FiO2 04/13/17 08:42 70 177/108 04/13/17 07:00 97.8 20 98 97.8 04/12/17 19:35 Room Air I & 0 Intake and Output 04/13/17 07:00 Intake Total 1400 ml Output Total 0 ml Balance 1400 ml Intake Oral 1400 ml Output Urine Total 0 ml # Voids 1 # Bowel Movements 7 PHYSICAL EXAM Physical Exam General Appearance: Awake Alert Oriented x 3 In no Distress Eyes: VIsion Unchanged Conjunctiva Normal EN: No EN Drainage Mucous Memb. moist Neck: no JVD no JVP Supple no Thyromegaly CVS: S1 S2 no Murmur No Gallop No Rub Ch + Edema Resp: no Rales no Rhonchi no Acc. Muscle use GI: BAS +ve NO Bruit Non Tender Non Distended - obese : no CVA tenderness; no Suprapubic Tenderness Assessment & Plan ESRD: Current FLuid and E-lyte status does not necessitate emergent need for Dialysis. Will re-evaluate for Dialysis in am and continue on MWF schedule. Anemia: Epogen as ordered. Transfuse with next HD as needed. HTN: Current BP meds reviewed. See orders for changes. ^ed Phos - better with restarting binders Edema - chronic, he does not want to be challenged while he is having diarrhea Diarrhea - slowing down some Met acidosis - presumably from Diarrhea - correctedn with HD as done yest hypoAlbuminemia -claims he is eatin well Discussed Plan of Care and prognosis etc. at length with pt COMMENT/RELEVANT DATA Meds Current Medications Medications (Trade) Dose Ordered Sig/Isaiah Start Time Stop Time Status Last Admin Dose Admin Aspirin (Children'S Aspirin) 81 mg HS 04/10/17 22:00 04/12/17 20:20 81 MG Atorvastatin Calcium (Lipitor) 5 mg DAILY 04/11/17 09:00 04/13/17 08:40 5 MG Cholestyramine Resin (Questran Light) 4 gm BID 04/13/17 10:00 04/13/17 11:17 4 GM Clopidogrel Bisulfate (Plavix) 75 mg DAILY 04/11/17 09:00 04/13/17 08:40 75 MG Cyanocobalamin (Vitamin B-12) 1,000 mcg DAILY 04/11/17 09:00 04/13/17 08:40 1,000 MCG Darbepoetin Florencio (Aranesp) 60 mcg [id number] 04/11/17 21:00 04/11/17 20:39 60 MCG Diphenhydramine HCl (Benadryl) 25 mg 1X PRN PRN 04/12/17 09:45 04/13/17 09:44 DC Furosemide (Lasix) 40 mg [id number] 04/10/17 22:00 04/13/17 08:40 40 MG Gabapentin (Neurontin) 300 mg HS 04/10/17 22:00 04/12/17 20:21 300 MG Info (PHARMACY MONITORING -- do not chart) 1 each PRN DAILY PRN 04/12/17 09:45 Isosorbide Mononitrate (Imdur) 120 mg DAILY 04/11/17 09:00 04/13/17 08:42 120 MG Losartan Potassium (Cozaar) 100 mg DAILY 04/11/17 09:00 04/13/17 08:41 100 MG Magnesium Sulfate/ Dextrose 50 ml @ 25 mls/hr PRN DAILY PRN 04/11/17 14:30 Metoprolol Succinate (Toprol Xl) 100 mg DAILY 04/11/17 09:00 04/13/17 08:41 100 MG Multivitamins (Thera M Plus) 1 tab DAILY 04/11/17 09:00 04/13/17 08:39 1 TAB Non-Formulary Medication 30 mg DAILY 04/11/17 09:00 UNV Oxycodone/ Acetaminophen (Percocet 5/325) 1 tab PRN Q4HRS PRN 04/10/17 21:45 Pantoprazole Sodium (Protonix) 40 mg DAILYAC 04/12/17 10:00 04/13/17 08:40 40 MG Sodium Bicarbonate 150 meq/Dextrose 1,150 ml @ 100 mls/hr [id number] 04/11/17 15:00 04/11/17 15:00 DC Sodium Chloride 1,000 ml @ 400 mls/hr Q2H30M PRN 04/12/17 09:42 04/12/17 21:41 DC Vancomycin HCl 125 mg [id number] 04/10/17 18:00 04/13/17 08:38 125 MG Lab Laboratory Tests Test 04/13/17 04:40 Sodium Level 137 mmol/L (136-145) Potassium Level 4.3 mmol/L (3.5-5.1) Chloride Level 102 mmol/L (98-107) Carbon Dioxide Level 27 mmol/L (21-32) Anion Gap 8 (6-14) Blood Urea Nitrogen 39 mg/dL (8-26) Creatinine 5.7 mg/dL (0.7-1.3) Estimated GFR (Cockcroft-Gault) 10.2 Glucose Level 149 mg/dL (70-99) Calcium Level 8.0 mg/dL (8.5-10.1) Phosphorus Level 5.4 mg/dL (2.6-4.7) Magnesium Level 2.0 mg/dL (1.8-2.4) Albumin 2.4 g/dL (3.4-5.0) LISSET NELSON MD Apr 13, 2017 11:33
--- NOTE | 2017-04-13 11:49 | PDOC ---
Subjective: Subjective: "Somewhat" better. 1 stool overnight, 2 this morning - improvement. Yesterday during dialysis had an accident and had to be "unhooked" twice. Wants to know when the diarrhea will be gone. "I shouldn't be rumbling this much." Concerns w/ being contagious around daughter and grandchildren on Thanksgiving - specifically wants to know if he can make the turkey. Objective: Objective: Note cholestyramine added. Vital Signs: Vital Signs Date Time Temp Pulse Resp B/P (MAP) Pulse Ox O2 Delivery O2 Flow Rate FiO2 04/13/17 08:42 70 177/108 04/13/17 07:00 97.8 20 98 97.8 04/12/17 19:35 Room Air Labs: Laboratory Tests Test 04/13/17 04:40 Sodium Level 137 mmol/L Potassium Level 4.3 mmol/L Chloride Level 102 mmol/L Carbon Dioxide Level 27 mmol/L Anion Gap 8 Blood Urea Nitrogen 39 mg/dL Creatinine 5.7 mg/dL Estimated GFR (Cockcroft-Gault) 10.2 Glucose Level 149 mg/dL Calcium Level 8.0 mg/dL Phosphorus Level 5.4 mg/dL Magnesium Level 2.0 mg/dL Albumin 2.4 g/dL PE: GEN: NAD LUNGS: CTAB HEART: RRR ABD: NABS, S/ND/NT, PD cath NEURO/PSYCH: A & O 3 A/P: C Diff diarrhea -on PO vanc, cholestyramine Anemia -in 2016 @ [facility]: EGD, SBCE, and colonoscopy unrevealing except for reflux -(path neg for H. pylori) -on PPI here ESRD on HD (has PD cath) -- Seems a little better today. Discussed hand hygiene. Other per Dr. Bush. ROCKY JACKSON Apr 13, 2017 11:49
[2017-04-13 13:18] VITALS: BP 173/105
[2017-04-13 14:12] VITALS: BP 151/97
[2017-04-13 14:13] VITALS: BP_SYST 169; BP_DIAS 100; BP_DIAS 95
[2017-04-13] MEDS: hydrALAZINE 20 MG/ML VIAL. IVP PRN (14:31)
[2017-04-13 19:00] VITALS: BP 174/99
[2017-04-13] MEDS: ASPIRIN CHEWABLE 81 MG TABLET. PO SCH (21:04)
[2017-04-13] MEDS: GABAPENTIN 300 MG CAPSULE. PO SCH (21:04)
[2017-04-13 22:45] VITALS: BP 177/100
[2017-04-14 03:21] VITALS: BP 171/96
[2017-04-14] MEDS: hydrALAZINE 20 MG/ML VIAL. IVP PRN (03:24)
[2017-04-14 05:20] LABS: ALBUMIN 2.8 g/dL (3.4-5.0); CALCIUM 8.2 mg/dL (8.5-10.1); CREATININE 6.3 mg/dL (0.7-1.3); GFR 9.1; MAGNESIUM 2.1 mg/dL (1.8-2.4); PHOSPHORUS 5.3 mg/dL (2.6-4.7); POTASSIUM 3.9 mmol/L (3.5-5.1)
[2017-04-14 07:00] VITALS: BP 136/80
[2017-04-14] MEDS: VANCOMYCIN 125 MG/2.5 ML ORAL SOLUTION. PO SCH ×2 (07:52→14:24)
[2017-04-14] MEDS: PANTOPRAZOLE 40 MG TABLET.DR. PO SCH (07:52)
[2017-04-14] MEDS: FUROSEMIDE 40 MG TABLET. PO SCH ×2 (09:00→14:25)
[2017-04-14] MEDS: CHOLESTYRAMINE/ASPARTAME 4 GM PACKET PO SCH (09:00)
--- NOTE | 2017-04-14 09:04 | PDOC ---
Subjective: Subjective: Doing better, anxious to go home after dialysis. Was "awake all night" but not because of diarrhea. Now having soft stools, much less frequent. Doesn't like cholestyramine, wants to stop. Objective: Vital Signs: Vital Signs Date Time Temp Pulse Resp B/P (MAP) Pulse Ox O2 Delivery O2 Flow Rate FiO2 04/14/17 07:00 98.2 88 18 136/80 (98) Room Air 98.2 04/14/17 03:21 97 Labs: Laboratory Tests Test 04/14/17 03:45 Sodium Level 131 mmol/L Potassium Level 3.9 mmol/L Chloride Level 98 mmol/L Carbon Dioxide Level 22 mmol/L Anion Gap 11 Blood Urea Nitrogen 44 mg/dL Creatinine 6.3 mg/dL Estimated GFR (Cockcroft-Gault) 9.1 Glucose Level 256 mg/dL Calcium Level 8.2 mg/dL Phosphorus Level 5.3 mg/dL Magnesium Level 2.1 mg/dL Albumin 2.8 g/dL PE: GEN: NAD, sitting up in bed eating breakfast LUNGS: CTAB HEART: RRR ABD: NABS, S/ND/NT NEURO/PSYCH: A & O 3 A/P: C Diff diarrhea -on PO vanc, cholestyramine Anemia -in 2016 @ [facility]: EGD, SBCE, and colonoscopy unrevealing except for reflux -on PPI here -ESRD Hyponatremia -- Improved. DC per primary on vanc. Okay to stop cholestyramine. ROCKY JACKSON Apr 14, 2017 09:04
--- NOTE | 2017-04-14 09:13 | PDOC ---
PROGRESS NOTES Subjective Subjective feels better ,ready go home Objective Objective Vital Signs Date Time Temp Pulse Resp B/P (MAP) Pulse Ox O2 Delivery O2 Flow Rate FiO2 04/14/17 07:00 98.2 88 18 136/80 (98) Room Air 98.2 04/14/17 03:21 97 Intake and Output 04/14/17 07:00 Intake Total 1330 ml Balance 1330 ml Intake Oral 1330 ml # Voids 5 # Bowel Movements 3 Physical Exam Abdomen: Soft, Other (ND, NTTP, pd cath in place) Heart: Regular rate, Normal S1, Normal S2, No murmurs Extremities: No clubbing, No cyanosis General: Alert, Oriented X3, Cooperative, No acute distress HEENT: PERRLA, Mucous membr. moist/pink Lungs: Clear to auscultation, Normal air movement Neuro: Normal speech, Sensation intact Psych/Mental Status: Mental status NL, Mood NL Skin: No rashes, No breakdown Diagnosis Problem List Problems Medical Problems: (1) Diarrhea Status: Acute (2) End-stage renal disease needing dialysis Status: Acute (3) Other disorders of phosphorus metabolism Status: Acute Assessment Assessment Problems Medical Problems: (1) Diarrhea Status: Acute (2) End-stage renal disease needing dialysis Status: Acute (3) Other disorders of phosphorus metabolism Status: Acute FINAL IMPRESSION: 1. Clostridium difficile diarrhea, c diff is positive 2. Peritoneal dialysis catheter was placed 3-4 weeks ago. There was infection, was treated with antibiotics that was 2 weeks ago, was treated for at least 1 week of antibiotics. 3. End-stage renal disease, on hemodialysis. 4. Coronary artery disease, bypass surgery. 5. Hypertension. 6. Hyperlipidemia. PLAN: d/c home on po vancomycin for 11 more days does not like Questran . Stool was sent for Clostridium difficile was positive, spoke with renal Dialysis today home tomorrow after that Problems: Plan Plan of Care Problems Medical Problems: (1) Diarrhea Status: Acute (2) End-stage renal disease needing dialysis Status: Acute (3) Other disorders of phosphorus metabolism Status: Acute Comment Review of Relevant I have reviewed the following items francisco (where applicable) has been applied. Labs Laboratory Tests Test 04/14/17 03:45 Sodium Level 131 mmol/L (136-145) Potassium Level 3.9 mmol/L (3.5-5.1) Chloride Level 98 mmol/L (98-107) Carbon Dioxide Level 22 mmol/L (21-32) Anion Gap 11 (6-14) Blood Urea Nitrogen 44 mg/dL (8-26) Creatinine 6.3 mg/dL (0.7-1.3) Estimated GFR (Cockcroft-Gault) 9.1 Glucose Level 256 mg/dL (70-99) Calcium Level 8.2 mg/dL (8.5-10.1) Phosphorus Level 5.3 mg/dL (2.6-4.7) Magnesium Level 2.1 mg/dL (1.8-2.4) Albumin 2.8 g/dL (3.4-5.0) Microbiology 04/10/17 Stool Culture, Resulted Pending 04/10/17 Stool Culture Result 1 (JOHN), Resulted Pending 04/10/17 Campylobacter Antigen Assay, Resulted Pending 04/10/17 Campylobactor Result 1, Resulted Pending 04/10/17 Shiga Toxin Test - Final, Resulted Medications Current Medications Cholestyramine Resin (Questran Light) 4 gm BID PO Last administered on 21:03; Start 04/13/17 at 10:00 Hydralazine HCl (Apresoline Inj) 10 mg PRN Q6HRS PRN IVP ELEVATED BP, SEE COMMENTS Last administered on 04/14/17 03:24; Start 04/13/17 at 14:15 Vitals/I & O Vital Sign - Last 24 Hours 04/13/17 04/13/17 04/13/17 04/13/17 13:18 14:12 14:13 14:13 Temp 98.1 98.1 Pulse 70 68 69 69 B/P (MAP) 173/105 (127) 151/97 (115) 169/100 (123) 169/95 (119) Pulse Ox 97 O2 Delivery Room Air 04/13/17 04/13/17 04/13/17 04/13/17 14:31 19:00 20:00 22:45 Temp 98.2 98.2 98.2 98.2 Pulse 69 65 74 Resp 17 B/P (MAP) 169/95 174/99 (124) 177/100 (125) Pulse Ox 96 97 O2 Delivery Room Air Room Air Room Air 04/14/17 04/14/17 04/14/17 03:21 03:24 07:00 Temp 98.3 98.2 98.3 98.2 Pulse 72 72 88 Resp 18 18 B/P (MAP) 171/96 (121) 171/96 136/80 (98) Pulse Ox 97 O2 Delivery Room Air Intake and Output 04/13/17 04/13/17 04/14/17 15:00 23:00 07:00 Intake Total 1330 ml Balance 1330 ml CHRISSY GARCIA MD Apr 14, 2017 09:13
[2017-04-14] MEDS ORDERED: VANC125C10 PO (09:18)
--- NOTE | 2017-04-14 09:21 | PDOC ---
Provider Note Provider Note Discharge summary dictated. #[id number] CHRISSY GARCIA MD Apr 14, 2017 09:21
[2017-04-14] MEDS ORDERED: IV NORMAL SALINE 1000ML BAG 1,000 ML IV PRN ×2 (09:27)
[2017-04-14] MEDS ORDERED: DIALYSIS PATIENT. MC PRN (09:30)
[2017-04-14] MEDS ORDERED: ALBUMIN HUMAN 25% 200 ML IV PRN (09:30)
[2017-04-14] MEDS ORDERED: 0.9 % SODIUM CHLORIDE 10 ML DISP.SYRIN. IV PRN ×2 (09:30)
--- NOTE | 2017-04-14 09:54 | DS ---
DATE OF DISCHARGE: 04/14/2017 LOCATION: 6. REASON FOR AD MISSION TO THE HOSPITAL: Diarrhea, C. difficile colitis. ATTENDING PHYSICIAN: Dr. Jimenes. PRIMARY PHYSICIAN: Dr. Kelly. HOSPITAL COURSE: The patient is a 62-year-old male who has history of end-stage renal disease, has peritoneal dialysis placed 3-4 weeks ago. The patient also has a temporary dialysis catheter in the meantime to use it, but it was clogged, so they used a peritoneal dialysis catheter [place] and he developed infection, was given antibiotic course for a week. This was 1-2 weeks before this admission to the hospital. The patient developed diarrhea, 5-6 stools for 3-4 days, came to the hospital and was found to have C. diff colitis positive, was given vancomycin liquid and it was improving. The patient was seen by renal, was given hemodialysis at [facility] and he was doing relatively well, also seen by GI. Was recommended continue vancomycin for a total of 2 weeks and the patient was discharged. FINAL DIAGNOSES: 1. Clostridium difficile colitis causing diarrhea. Recent peritoneal dialysis catheter infection, was given antibiotics.That might have precipitated c diff. 2. End-stage renal disease, has both peritoneal dialysis catheter placed 3 weeks ago and also temporary dialysis catheter, pt was dialyzed in the hospital. 3. Hypertension, hyperlipidemia, coronary artery disease, history of bypass surgery, all stable DISPOSITION: Home.P O vancomycin 125 mg p.o. q.i.d. for 11 more days. C Diff precaution was given. Follow up with PCP in 1 week. CHRISSY JIMENES MD DR: SCOTT/nts JOB#: [id number] / [id number] RANJIT Horton
--- NOTE | 2017-04-14 11:33 | PDOC ---
Dialysis Progress Note Dialysis Note Dialysis Note Seen on Hemodialysis, tolerating treatment Well Vitals on Hemodialysis: 167/83 75 afeb General Appearance: Asleep; did not awaken Neck: No JVD or JVP Chest: CTA Link Heart: S1 S2 Abdomen - Soft NTND Extremities - Ch Edema ESRD: Dialysis as below F 180 NR 3.5 Hrs 3 K 2.5 Ca 140 Na 35 HC03 Qb 350 + Qd 500+ Heparin 0 Units Uf 1 Kgs or to dry weight as tolerated may give 25-50 gms of 25% Albumin if needed to maintain Hemodynamic stability Treatment plan reviewed and discussed with hotshot superintendent Vitals Vital Signs Vital Signs Date Time Temp Pulse Resp B/P (MAP) Pulse Ox O2 Delivery O2 Flow Rate FiO2 04/14/17 08:05 Room Air 04/14/17 07:00 98.2 88 18 136/80 (98) 98.2 04/14/17 03:21 97 Labs Last Labs Laboratory Tests Test 04/13/17 04:40 04/14/17 03:45 Sodium Level 137 mmol/L (136-145) 131 mmol/L (136-145) Potassium Level 4.3 mmol/L (3.5-5.1) 3.9 mmol/L (3.5-5.1) Chloride Level 102 mmol/L (98-107) 98 mmol/L (98-107) Carbon Dioxide Level 27 mmol/L (21-32) 22 mmol/L (21-32) Anion Gap 8 (6-14) 11 (6-14) Blood Urea Nitrogen 39 mg/dL (8-26) 44 mg/dL (8-26) Creatinine 5.7 mg/dL (0.7-1.3) 6.3 mg/dL (0.7-1.3) Estimated GFR (Cockcroft-Gault) 10.2 9.1 Glucose Level 149 mg/dL (70-99) 256 mg/dL (70-99) Calcium Level 8.0 mg/dL (8.5-10.1) 8.2 mg/dL (8.5-10.1) Phosphorus Level 5.4 mg/dL (2.6-4.7) 5.3 mg/dL (2.6-4.7) Magnesium Level 2.0 mg/dL (1.8-2.4) 2.1 mg/dL (1.8-2.4) Albumin 2.4 g/dL (3.4-5.0) 2.8 g/dL (3.4-5.0) 25-Hydroxy Vitamin D Total 21.6 ng/mL (30-100) Laboratory Tests Test 04/14/17 03:45 Sodium Level 131 mmol/L (136-145) Potassium Level 3.9 mmol/L (3.5-5.1) Chloride Level 98 mmol/L (98-107) Carbon Dioxide Level 22 mmol/L (21-32) Anion Gap 11 (6-14) Blood Urea Nitrogen 44 mg/dL (8-26) Creatinine 6.3 mg/dL (0.7-1.3) Estimated GFR (Cockcroft-Gault) 9.1 Glucose Level 256 mg/dL (70-99) Calcium Level 8.2 mg/dL (8.5-10.1) Phosphorus Level 5.3 mg/dL (2.6-4.7) Magnesium Level 2.1 mg/dL (1.8-2.4) Albumin 2.8 g/dL (3.4-5.0) 25-Hydroxy Vitamin D Total 21.6 ng/mL (30-100) Assessment Assessment Problems Medical Problems: (1) Diarrhea Status: Acute (2) End-stage renal disease needing dialysis Status: Acute (3) Other disorders of phosphorus metabolism Status: Acute Problems: Plan Plan of Care Problems Medical Problems: (1) Diarrhea Status: Acute (2) End-stage renal disease needing dialysis Status: Acute (3) Other disorders of phosphorus metabolism Status: Acute LISSET NELSON MD Apr 14, 2017 11:33
[2017-04-14] MEDS: ISOSORBIDE MONONITRATE ER 30 MG TAB.ER.24H PO SCH (14:25)
[2017-04-14] MEDS: CLOPIDOGREL BISULFATE 75 MG TABLET PO SCH (14:26)
[2017-04-14] MEDS: LOSARTAN POTASSIUM 50 MG TABLET. PO SCH (14:26)
[2017-04-14] MEDS: CYANOCOBALAMIN (VITAMIN B-12) 1,000 MCG TABLET. PO SCH (14:26)
[2017-04-14] MEDS: ATORVASTATIN CALCIUM 10 MG TABLET. PO SCH (14:26)
[2017-04-14 14:27] VITALS: BP 136/80
[2017-04-14] MEDS: MULTIVITAMIN with MINERAL TABLET. PO SCH (14:27)
[2017-04-14] MEDS: METOPROLOL SUCC 24HR ER 100 MG TAB.ER.24H. PO SCH (14:27)
== END 2017-04-14 15:00 | disposition home or self-care (01) | DRG 371 ==
LOC: ER 15:16 → 5 SOUTH 17:30
PROVIDERS: ADMIT Internal Medicine; ATTEND Internal Medicine
PROC: 5A1D70Z Performance of Urinary Filtration, Intermittent, Less than 6 Hours Per Day (ICD-10-PCS; principal; 2017-04-12)
PROC: 5A1D70Z Performance of Urinary Filtration, Intermittent, Less than 6 Hours Per Day (ICD-10-PCS; 2017-04-14)
DX: A04.72 Enterocolitis due to Clostridium difficile, not specified as recurrent (principal); N18.6 End stage renal disease; I13.2 Hypertensive heart and chronic kidney disease with heart failure and with stage 5 chronic kidney disease, or end stage renal disease; E11.22 Type 2 diabetes mellitus with diabetic chronic kidney disease; E11.40 Type 2 diabetes mellitus with diabetic neuropathy, unspecified; E87.1 Hypo-osmolality and hyponatremia; I25.10 Atherosclerotic heart disease of native coronary artery without angina pectoris; E78.00 Pure hypercholesterolemia, unspecified; D64.9 Anemia, unspecified; E11.51 Type 2 diabetes mellitus with diabetic peripheral angiopathy without gangrene; E78.5 Hyperlipidemia, unspecified; E83.30 Disorder of phosphorus metabolism, unspecified; E66.09 Other obesity due to excess calories; M19.90 Unspecified osteoarthritis, unspecified site; I50.9 Heart failure, unspecified; I25.2 Old myocardial infarction; Z79.4 Long term (current) use of insulin; Z95.1 Presence of aortocoronary bypass graft; Z95.5 Presence of coronary angioplasty implant and graft; Z87.891 Personal history of nicotine dependence; Z83.3 Family history of diabetes mellitus; Z82.49 Family history of ischemic heart disease and other diseases of the circulatory system; Z99.2 Dependence on renal dialysis; Z68.32 Body mass index [BMI] 32.0-32.9, adult
CPT/HCPCS: 36415; 71010; 74000; 80048; 80053; 80069; 82306; 83605; 83735; 84100; 85018; 85025; 87045; 87324; 93005; 96374; J0360; J0881; J1940; 99285-25

== ENCOUNTER → 2017-05-04 | Outpatient (CLI) | payer OTHER ==
[2017-04-14 14:27] VITALS: BP 136/80
[~2017-05-04] MED LIST changes: +FURO-68 PO; +VANC125C10 PO
--- NOTE | 2017-05-04 13:56 | RAD ---
Clinical Indication: Right lower extremity edema Technique: Study is dated May 04, 2017. Grayscale, color flow and spectral waveform analysis was performed of the right lower extremity with and without compression. Findings: There is normal compressibility of all visualized vein segments. No evidence of DVT is present on grayscale or color images. There is normal phasicity of waveform. There is normal augmentation. Impression: No evidence of deep vein thrombosis.
== END | disposition home or self-care (01) ==
LOC: US 13:14
PROVIDERS: ATTEND Family Medicine
DX: M79.604 Pain in right leg (principal); M79.89 Other specified soft tissue disorders; R60.0 Localized edema
CPT/HCPCS: 93971